=== PATIENT | female | born 1940 | race Hispanic/Latino ===

== ENCOUNTER → 2018-01-21 | Outpatient (CLI) | payer MEDICARE | END | disposition home or self-care (01) | LOC: RAH 13:42 | PROVIDERS: ATTEND Internal Medicine | DX: Z12.31 Encounter for screening mammogram for malignant neoplasm of breast (principal) | CPT/HCPCS: 77067 ==

== ENCOUNTER → 2019-01-23 | Outpatient (CLI) | payer OTHER | END | disposition home or self-care (01) | LOC: RAH 10:09 | PROVIDERS: ATTEND Internal Medicine | DX: Z12.31 Encounter for screening mammogram for malignant neoplasm of breast (principal) | CPT/HCPCS: 77067 ==

== ENCOUNTER → 2021-03-06 | Outpatient (CLI) | payer OTHER | END | disposition home or self-care (01) | LOC: RAH 08:28 | PROVIDERS: ATTEND Internal Medicine Medical Oncology | DX: D69.49 Other primary thrombocytopenia (principal); Z90.49 Acquired absence of other specified parts of digestive tract | CPT/HCPCS: 76700 ==

== ENCOUNTER 2023-01-08 08:43 | Emergency (ER) | payer OTHER ==
[~2023-01-08] VITALS: Ht 149.9 cm; Wt 63.5 kg
[2023-01-08] MEDS ORDERED: MORPHINE 4 MG SYG IM ONE (11:00)
[2023-01-08] MEDS ORDERED: FAMOTIDINE 20MG TAB ONE (12:07)
[2023-01-08] MEDS ORDERED: ONDANSETRON ODT 4MG TAB ONE (12:07)
[2023-01-08] MEDS ORDERED: ONDANSETRON ODT 4MG TAB SL ONE (12:30)
[2023-01-08] MEDS ORDERED: FAMOTIDINE 20MG TAB PO ONE (12:30)
[2023-01-08 13:43] VITALS: BP 142/80
== END 2023-01-08 13:42 | disposition home or self-care (01) ==
LOC: EDH 08:43
DX: S46.812A Strain of other muscles, fascia and tendons at shoulder and upper arm level, left arm, initial encounter (principal); S20.20XA Contusion of thorax, unspecified, initial encounter; S00.511A Abrasion of lip, initial encounter; E78.00 Pure hypercholesterolemia, unspecified; Z90.49 Acquired absence of other specified parts of digestive tract; Z90.89 Acquired absence of other organs; Z98.890 Other specified postprocedural states; W01.0XXA Fall on same level from slipping, tripping and stumbling without subsequent striking against object, initial encounter; Y93.89 Activity, other specified; Y92.89 Other specified places as the place of occurrence of the external cause; Y99.8 Other external cause status
CPT/HCPCS: 99284; 73070; 73060; 71100; 73020; 96372; 93005 ×2; J2270

== ENCOUNTER → 2023-11-22 | Outpatient (CLI) | payer OTHER | END | disposition home or self-care (01) | LOC: RAH 14:12 | PROVIDERS: ATTEND Internal Medicine | DX: G31.9 Degenerative disease of nervous system, unspecified (principal); I77.9 Disorder of arteries and arterioles, unspecified; F05 Delirium due to known physiological condition; F03.90 Unspecified dementia, unspecified severity, without behavioral disturbance, psychotic disturbance, mood disturbance, and anxiety | CPT/HCPCS: 70551 ==